=== PATIENT | female | born 1980 | race Caucasian/White ===

== ENCOUNTER → 2025-04-30 12:37 | Outpatient (REF) | payer OTHER, SELFPAY | LOC: RCS 12:37 | PROVIDERS: ATTENDING PHYSICIAN Internal Medicine Cardiovascular Disease; FAMILY PHYSICIAN Family Medicine | DX: I48.0 Paroxysmal atrial fibrillation (principal); Z51.81 Encounter for therapeutic drug level monitoring | CPT/HCPCS: 93306 ==

== ENCOUNTER → 2025-05-01 10:21 | Outpatient (REF) | payer OTHER, SELFPAY | LOC: RCS 10:21 | PROVIDERS: ATTENDING PHYSICIAN Internal Medicine Cardiovascular Disease; FAMILY PHYSICIAN Family Medicine | DX: I48.0 Paroxysmal atrial fibrillation (principal); Z51.81 Encounter for therapeutic drug level monitoring | CPT/HCPCS: 93017 ==

== ENCOUNTER 2025-06-22 05:54 | Day surgery (SDC) | payer OTHER, SELFPAY ==
[2025-06-05 08:43] VITALS: BMI 31.1
[2025-06-05 08:58] LABS: Hematocrit 41.2 % (37.0-47.0); Hemoglobin 14.0 g/dL (12.0-16.0); Mean Corp Hgb Conc. 34.0 g/dL (33.0-37.0); Mean Corpuscular Volume 86.9 fL (81.0-99.0); Nucleated Red Blood Cells % 0 %; Platelet Count 320 10^3/uL (130-400); Red Cell Dist. Width 13.2 % (11.5-14.5)
[2025-06-05 09:42] LABS: ALT (SGPT) 22 U/L (0-35); AST (SGOT) 19 U/L (14-36); Albumin 3.9 g/dl (3.5-5.0); Alkaline Phosphatase 63 U/L (38-126); Blood Urea Nitrogen 14 mg/dl (7-17); Calcium 9.4 mg/dl (8.4-10.2); Carbon Dioxide 24 mmol/L (22-30); Chloride 107 mmol/L (98-107); Estimated Creatinine Clearance 102 ml/min; Glucose 115 mg/dl (70-99); Potassium 4.4 mmol/L (3.5-5.1); Sodium 138 mmol/L (135-145); Total Protein 6.8 g/dl (6.3-8.2); eGFR > 60.00
[2025-06-22] VITALS (11 sets, daily range): BP systolic 104–126; BP diastolic 54–79; BMI 31.2
[2025-06-22 08:54] LABS: ACT-LR - POC 332 Seconds (116-155)
[2025-06-22 09:03] LABS: Glucose - Point of Care 91 mg/dl (70-99)
[2025-06-22 09:13] LABS: ACT-LR - POC 316 Seconds (116-155)
--- NOTE | 2025-06-22 09:34 | ITS.CL.ABL ---
Hand Embroide[facility] - Ablation
Ablation
Procedure Report:
AFIB ablation:
Ms. Alvarado is a very pleasant 44 yr old woman with symptomatic paroxysmal AF s/p AF ablation 2016 with PVI had recurrent atrial fibrillation and failed Flecainide is recommended a redo AF ablation.
Date of the Procedure:
06/22/2025
Indications:
Paroxysmal with recurrent atrial fibrillation
Pre-Operative Diagnosis:
Paroxysmal with recurrent atrial fibrillation
Post-Operative Diagnosis:
Paroxysmal with recurrent atrial fibrillation
Procedure Performed:
Atrial fibrillation ablation with Pulsed-Field approach for pulmonary vein isolation
Posterior wall isolation
Performing Physician:
Cristóbal Carpio MD
Assistants:
EP staff
Anesthesia:
See anesthesia records
Detailed Description of the Procedure:
Written informed consent was obtained from the patient after a full explanation of the risks and benefits of the procedure including the risks of sedation and anesthesia.
The patient was brought to the electrophysiology laboratory in stable condition in fasting state. Continuous electrocardiographic and hemodynamic monitoring was initiated.
The initial rhythm was sinus
The procedure site was meticulously prepared with surgical scrub and allowed to dry with no pooling. Sterile draping was applied to cover the procedure site. The image intensifier was draped with sterile bag and positioned over the patient. After
infusion of local anesthetic, vascular access was obtained under ultrasound guidance and sheaths were placed over guide wire as detailed below.
Sheath and Catheter Placement:
The following catheters / sheaths were placed
Sheaths:
��������� 17Fr steerable sheath ([employer]iquid [employer]ms�, RatePoint) in right femoral
��������� 9Fr in right femoral vein
��������� 7Fr in right femoral vein
Catheters:
��������� PHILLIP HD Grid mapping catheter � at locations of RA, LA
��������� Farawave� PFA catheter
��������� ICE catheter -AcuNav - at locations of RA, SVC, and RV.
��������� Decapolar Bard catheter in RA and CS
Intracardiac ECHO:
An 8-[place] AcuNav intracardiac ECHO (ICE) probe was advanced through the 9-[place] sheath in the right femoral vein into the right atrium under fluoroscopic and ICE ultrasound image guidance and a baseline ECHO study was performed. The left atrial
size was dilated. There was mild tricuspid regurgitation. The aortic valve was grossly normal. There was normal left ventricular systolic functions. There is no pericardial effusion. All the four veins were identified and has flow identified.
During the procedure, ICE was used for monitoring of complications, guidance of trans-septal puncture, monitor the catheter position and tracking ablation lesions. No change in the pericardial space noted throughout the procedure.
Trans-septal Puncture:
Heparin was initiated and infused to maintain appropriate ACT. A J-tipped guidewire was advanced through the 8-[place] sheath in the right femoral vein into the superior vena cava under fluoroscopic and ICE guidance. The 9-[place] sheath was exchanged
for a Faradrive sheath which was advanced into the superior vena cava. A transseptal RF pigtail via Faradrive connect system was utilized to perform the trans-septal puncture. The apparatus was withdrawn until it was in contact with the fossa
ovalis. The position was adjusted based on fluoroscopy and ultrasound images from ICE. Under fluoroscopic, hemodynamic and ICE ultrasound guidance, left atrium was cannulated by applying RF energy. Once atrial septum was cannulated, the pigtail wire
was advanced through the needle into the left atrium. The guide wire was advanced into the left superior pulmonary vein. Both the sheath and the dilator was advanced into the left atrium. The dilator with the needle was withdrawn. Blood was
aspirated from the Faradrive sheath and arterial blood confirmed. The sheath was flushed. Saline injection noted into the left atrium on ICE. The mapping catheter was advanced in the sheath into the left pulmonary vein. Left atrial pressure was
measured.
3D Electroanatomic Mapping:
Using the HD Grid catheter advanced through sheath into the left atrium, an electroanatomic map (EAM) of the left atrium was created using OpVista mapping system. The map was used for localization of catheter position and tacking of ablation
lesions.
The EAM of the left atrium showed 5 pulmonary veins (3 left and 2 right) with left sided veins electrically reconnected to the LA and the right sided veins are isolated from the LA. It showed no significnat scar in the posterior wall.
However, there was AF focus noted on the roof area adjacent to the LSPV and the catheter there caused ectopy to induce atrial fibrillation. The AF perrsisted during the case until when it was ablated at that location to sinus rhythm.
The LA was dilated in size.
Following the EAM, preparation were made for ablation.
Ablation:
Ablation # 1: Pulmonary vein Isolation:
Glycopyrrolate 0.2 mg was given prior to the placement of ablation. Using EpiGaN pulsed wave ablation system, pulmonary vein isolation was achieved. First the [address] ablation catheter was placed in the left superior pulmonary vein (LSPV) and
ostial ablation lesions were performed in �[place] formation� in the PV ostium circumferentially. Then the catheter was placed on the antral location in �flower formation� and lesions were placed circumferentially on the antrum of the vein.
In the similar fashion, the left middle and LIPV were isolated.
Ablation # 2: Posterior wall isolation:
The area on the roof adjacent to the LSPV where the catheter induced atrial fibrillation was noted was ablated that terminated the AF rhythm into sinus rhythm. With roof area ablated, it was a set up for roof dependent flutter hence roof line was
created.
Using the pulsed field ablation catheter, the catheter was placed on the posterior wall and moved around the posterior wall to have adequate contact and ablations were placed isolating the posterior wall.
Post ablation Electroanatomic mapping:
Once ablation was completed, the EAM of the LA was done again in sinus rhythm with excellent demarcation of LA myocardium and isolated antral tissue.
The BRANDON had healthy signals and was not isolated.
EPS and Confirmation of the PVI and bidirectional block:
Following achievement of entrance block at the pulmonary veins, pacing from the HD catheter in each of the four veins at 10 milliamps for 2 milliseconds showed entrance and exit block. All PVI were rechecked at the end of the case and remained
isolated with dissociated and local capture with pacing. Entrance and exit block were demonstrated in all veins.
Procedure End
ICE study was done again that showed no change in epicardial accumulation. No complications noted.
Following the completion of the EP study, catheters were removed. Protamine 40 mg was given at the end of the procedure and ACT was checked repeatedly. The sheaths were removed and hemostasis achieved with manual compression after acceptable ACT is
achieved.
Left atrial Pressure:
Pre-Procedure: Mean LA pressure was 7mmHg
Post-Procedure: Mean LA pressure was 9mmHg
Post-Procedure: Mean LR pressure was 5mmHg
Estimated Blood loss:
<10 cc
Specimens Removed:
None.
Implants / Devices:
None
Urine output:
None
Packs / Drains/ Tubes:
None
Instrument / Sponge Count Correct:
Yes
Complications of the Procedure:
None
Condition of Patient at Time of Transfer:
Hemodynamically stable with no neurological or vascular compromise.
Summary:
Successful atrial fibrillation ablation with Pulsed Field approach for pulmonary vein isolation and posterior wall isolation
Figures from the Procedure:
Figure 1: The electroanatomic mapping (EAM) of the left atrium with bipolar voltage (purple indicates normal electrical activity with zapata as no myocardial muscle electric activity indicating a line of block or scar.
[2025-06-22] MEDS: TYLENOL 650 MG PO (10:49)
--- NOTE | 2025-06-22 13:56 | W.PN.UPDATE ---
Update Note
Progress Note Update
Pt seen post PFA. Right groin site without ht/bleeding, non tender. Post EKG NSR w/PACs, no acute changes. Resume pradaxa tonight at usual time. Continue other meds as before including flecainide, diltiazem. Followup at [facility] in 2 weeks as scheduled.
Home today if groin site/tele remain stable.
== END 2025-06-22 14:40 | disposition home or self-care (01) ==
LOC: CATH 05:54
PROVIDERS: ATTENDING PHYSICIAN Internal Medicine Cardiovascular Disease; FAMILY PHYSICIAN Family Medicine; REFERRING PHYSICIAN Internal Medicine Cardiovascular Disease
DX: I48.0 Paroxysmal atrial fibrillation (principal); I49.1 Atrial premature depolarization; Z88.0 Allergy status to penicillin; Z88.5 Allergy status to narcotic agent
CPT/HCPCS: C1732; C1894; C1730; C1769; C1892; C1759; 36415; 80053; 82962; 85025; 85347; 86850; 86900; 86901; 93005; 93656; 93657